=== PATIENT | male | born 1970 | race Caucasian/White ===

== ENCOUNTER 2016-08-20 11:04 | Emergency (ER) | payer OTHER, BC ==
--- NOTE | 2016-08-20 11:46 | CR ---
Clinical history: 46-year-old male "crush" injury right hand (between semitruck and conveyer). Interpretation: Negative. 3 views right hand unremarkable i.e. minimal soft tissue swelling and no sign of underlying fracture or dislocation right hand/wrist. No foreign bodies.
--- NOTE | 2016-08-20 11:54 | EDM.PDOC ---
ED HPI GENERAL MEDICAL PROBLEM - General Chief Complaint: Upper Extremity Injury/Pain Stated Complaint: [id number] CRUSHED HAND AT WORK 08/20 Time Seen by Provider: 08/20/16 11:50 Source of Information: Reports: Patient, RN, RN Notes Reviewed History Limitations: Reports: No Limitations - History of Present Illness INITIAL COMMENTS - FREE TEXT/NARRATIVE: C/O Rt hand injury at work [employer] when hand was smashed between a semi a conveyor. Denies any other injury. Tetanus vaccine is current. Onset: Today Onset Date: 08/20/16 Duration: Constant Location: Reports: Upper Extremity, Right Quality: Reports: Ache, Throbbing Severity: Severe Improves with: Reports: None Worsens with: Reports: None Associated Symptoms: Reports: No Other Symptoms Right Hand Pain Score (Numeric/FACES): 3 - Related Data Allergies Allergy/AdvReac Type Severity Reaction Status Date / Time cayenne pepper fruits Allergy Swelling Verified 08/20/16 11:15 Penicillins Allergy Nausea and Verified 08/20/16 11:15 Vomiting Home Meds: Home Meds Lisinopril [Prinivil] 10 mg PO DAILY 04/25/16 [History] Triamcinolone Acetonide [Triamcinolone Acetonide 0.1% Crm] 1 dose TOP BID PRN [History] Past Medical History HEENT History: Reports: None Cardiovascular History: Reports: Hypertension Respiratory History: Reports: None Gastrointestinal History: Reports: None Genitourinary History: Reports: None Musculoskeletal History: Reports: Other (See Below) Neurological History: Reports: None Psychiatric History: Reports: None Endocrine/Metabolic History: Reports: None Hematologic History: Reports: None Immunologic History: Reports: None Oncologic (Cancer) History: Reports: None Dermatologic History: Reports: None - Infectious Disease History Infectious Disease History: Reports: Chicken Pox - Past Surgical History Head Surgeries/Procedures: Reports: None GI Surgical History: Reports: Hernia, Inguinal Musculoskeletal Surgical History: Reports: Hip Replacement Social & Family History - Family History Family Medical History: Noncontributory - Tobacco Use Smoking Status *Q: Never Smoker Second Hand Smoke Exposure: Yes - Caffeine Use Caffeine Use: Reports: Coffee, Soda - Alcohol Use Days Per Week of Alcohol Use: 1 Number of Drinks Per Day: 1 Total Drinks Per Week: 1 - Recreational Drug Use Recreational Drug Use: No - Living Situation & Occupation Living situation: Reports: , with Family Review of Systems - Review of Systems Review Of Systems: ROS reveals no pertinent complaints other than HPI. ED EXAM, GENERAL - Physical Exam Exam: See Below Exam Limited By: No Limitations General Appearance: Alert, WD/WN, No Apparent Distress Head: Atraumatic, Normocephalic Respiratory/Chest: No Respiratory Distress Cardiovascular: Normal Peripheral Pulses Back Exam: Normal Inspection Extremities: Normal Capillary Refill, Other (moderate swelling to dorsum of right hand overlying the 2nd and 3rd MCPJ with a small superficial abrasion) Neurological: Alert, Oriented, Normal Cognition, Normal Gait, No Motor/Sensory Deficits Psychiatric: Normal Affect, Normal Mood Skin Exam: Warm, Dry, Intact, Normal Color, No Rash Course - Radiology Interpretation Free Text/Narrative:: Xray Rt hand: no fractures, see Rad. report. Departure - Departure Time of Disposition: 11:57 Disposition: Home, Self-Care 01 Condition: good Clinical Impression: Work related injury Crush injury of hand Qualifiers: Encounter type: initial encounter Laterality: right Qualified Code(s): S67.21XA - Crushing injury of right hand, initial encounter Contusion of right hand Qualifiers: Encounter type: initial encounter Qualified Code(s): S60.221A - Contusion of right hand, initial encounter - Discharge Information Instructions: Hand Contusion, [id number] Forms: ED Department Discharge Additional Instructions: Ice pack and elevate right hand as needed to reduce pain and swelling. Activity as tolerated. Follow up in clinic if any further problems.
[2016-08-20 12:06] VITALS: BP 130/94
== END 2016-08-20 12:10 | disposition home or self-care (01) ==
LOC: DL.ED 11:04
DX: S67.21XA Crushing injury of right hand, initial encounter (principal); S60.221A Contusion of right hand, initial encounter; Y99.0 Civilian activity done for income or pay; W23.0XXA Caught, crushed, jammed, or pinched between moving objects, initial encounter
CPT/HCPCS: 73130-RT; 99283

== ENCOUNTER 2017-07-23 15:34 | Emergency (ER) | payer OTHER, BC ==
[2017-07-23 15:42] VITALS: BP 174/107
[2017-07-23] MEDS ORDERED: Lidocaine 1% 30 ML SDV INJECT ONE (16:18)
[2017-07-23] MEDS ORDERED: Bacitracin Oint 1 GM U/D Packet TOP ONE (16:19)
--- NOTE | 2017-07-23 17:05 | EDM.PDOC ---
Scribed by Gladys Briones 07/23/17 [id number] for Kayden Yadav MD ED HPI GENERAL MEDICAL PROBLEM - General Chief Complaint: Laceration Stated Complaint: [id number] laceration lt index finger WC Time Seen by Provider: 07/23/17 15:45 Source of Information: Reports: Patient, RN, RN Notes Reviewed History Limitations: Reports: No Limitations - History of Present Illness INITIAL COMMENTS - FREE TEXT/NARRATIVE: Patient presents to ER with complaint of cut to left index finger on a metal lathe at work. The lathe was accidentally turned on by someone and it turned, crushing the pt's left hand and index finger. Denies any other injury. Last tetanus vaccine was less than 3 yrs ago per pt. Onset: Today Location: Reports: Upper Extremity, Left Quality: Reports: Ache Severity: Moderate Improves with: Reports: None Worsens with: Reports: None Associated Symptoms: Reports: No Other Symptoms Left Hand Pain Score (Numeric/FACES): 2 - Related Data Allergies Allergy/AdvReac Type Severity Reaction Status Date / Time cayenne pepper fruits Allergy Swelling Verified 07/23/17 15:44 Penicillins Allergy Nausea and Verified 07/23/17 15:44 Vomiting Home Meds: Home Meds Lisinopril [Prinivil] 10 mg PO DAILY 04/25/16 [History] Triamcinolone Acetonide [Triamcinolone Acetonide 0.1% Crm] 1 dose TOP BID PRN [History] Aspirin 325 mg PO ASDIRECTED PRN 07/23/17 [History] Past Medical History HEENT History: Reports: None Cardiovascular History: Reports: Hypertension Respiratory History: Reports: None Gastrointestinal History: Reports: None Genitourinary History: Reports: None Musculoskeletal History: Reports: Other (See Below) Neurological History: Reports: None Psychiatric History: Reports: None Endocrine/Metabolic History: Reports: None Hematologic History: Reports: None Immunologic History: Reports: None Oncologic (Cancer) History: Reports: None Dermatologic History: Reports: None - Infectious Disease History Infectious Disease History: Reports: Chicken Pox - Past Surgical History Head Surgeries/Procedures: Reports: None GI Surgical History: Reports: Hernia, Inguinal Musculoskeletal Surgical History: Reports: Hip Replacement Social & Family History - Family History Family Medical History: Noncontributory - Caffeine Use Caffeine Use: Reports: Coffee, Soda - Living Situation & Occupation Living situation: Reports: , with Family ED ROS GENERAL - Review of Systems Review Of Systems: ROS reveals no pertinent complaints other than HPI. ED EXAM, SKIN/RASH Exam: See Below Exam Limited By: No Limitations General Appearance: Alert, WD/WN, No Apparent Distress Head: Atraumatic, Normocephalic Respiratory/Chest: No Respiratory Distress Peripheral Pulses: 3+: Radial (L), Radial (R) Extremities: Normal Capillary Refill, Other (2cm linear laceration to left dorsal index finger to depth of subcut. tissue, mild active bleeding, fine flecks of metallic FB remove w/irrig. and forceps) Neurological: Alert, No Motor/Sensory Deficits Psychiatric: Normal Mood Skin: Warm, Dry Location, Skin: Upper Extremity, Left ED SKIN PROCEDURES - Laceration/Wound Repair Left Dorsal Finger Lac/Wound length In cm: 2 (Left index finger) Appearance: Subcutaneous, Linear, Mildly Contaminated Distal NVT: Neuro & Vascular Intact, No Tendon Injury Anesthetic Type: Local Local Anesthesia - Lidocaine (Xylocaine): 1% Plain Local Anesthetic Volume: 4cc Skin Prep: Chlorhexidine (Hibiciens), Saline Saline Irrigation (cc's): 1,000 Exploration/Debridement/Repair: Wound Explored, In a Bloodless Field, Explored to Base, Minimal Debridement, Minimally Undermined, Foreign Material Removed Closed with: Sutures Suture Size: 4-0 # of Sutures: 7 Suture Type: Nylon, Running Drain Placement: No Sterile Dressing Applied: Nurse Tetanus Status Addressed: Yes Complications: No - Splinting Left 2nd Digit Splint Site: Left index finger. Pre-Procedure NV Status: Normal Post-Procedure NV Status: Normal Splint Material: Aluminum-Foam Splint Design: Volar Applied & Form Fitted By: Nurse Provider Post-Splint Application NV Check: NV Status Normal, Good Position Complications: No Course - Vital Signs Last Recorded V/S: Last Vital Signs Temp 37.3 C 07/23/17 15:41 Pulse 70 07/23/17 15:41 Resp 17 07/23/17 15:41 BP 174/107 H 07/23/17 15:41 Pulse Ox 100 07/23/17 15:41 - Orders/Labs/Meds Orders: Active Orders 24 hr Category Date Time Status Hand Comp Min 3V Lt [CR] Urgent Exams 05/11/18 16:43 Taken Meds: Medications Discontinued Medications Generic Name Dose Route Start Last Admin Trade Name Sarah PRN Reason Stop Dose Admin Bacitracin 1 dose 07/23/17 16:19 07/23/17 16:57 Bacitracin Oint 1 Gm TOP 07/23/17 16:20 1 dose ONETIME ONE Administration Lidocaine HCl 30 ml 07/23/17 16:18 07/23/17 16:57 Xylocaine-Mpf 1% INJECT 07/23/17 16:19 30 ml ONETIME ONE Administration - Radiology Interpretation Free Text/Narrative:: Left hand x-ray: No fracture. See rad report. Departure - Departure Time of Disposition: 16:59 Disposition: Home, Self-Care 01 Condition: Good Clinical Impression: Laceration of left index finger Qualifiers: Encounter type: initial encounter Damage to nail status: without damage Foreign body presence: with foreign body Qualified Code(s): S61.221A - Laceration with foreign body of left index finger without damage to nail, initial encounter Crushing injury of left hand Qualifiers: Encounter type: initial encounter Qualified Code(s): S67.22XA - Crushing injury of left hand, initial encounter - Discharge Information Instructions: Crush Injury of the Hand, [id number], Laceration Care, Adult, [id number] Referrals: Nano Lux, MANAGER PRIMARY [Primary Care Provider] - Forms: ED Department Discharge Additional Instructions: Follow up in clinic for suture removal in 7 to 10 days. Return to ER if any signs of infection develop. Wear finger splint as needed to avoid bending the finger and tearing out the sutures. - My Orders Last 24 Hours: My Active Orders 07/23/17 16:43 Hand Comp Min 3V Lt [CR] Urgent - Assessment/Plan Last 24 Hours: My Active Orders 07/23/17 16:43 Hand Comp Min 3V Lt [CR] Urgent I have read and agree with the documentation that has been completed regarding this visit. By signing this record, I attest that the documentation was completed in my physical presence and is an accurate record of the encounter.
== END 2017-07-23 17:08 | disposition home or self-care (01) ==
LOC: DL.ED 15:34
DX: S67.22XA Crushing injury of left hand, initial encounter (principal); S61.211A Laceration without foreign body of left index finger without damage to nail, initial encounter; I10 Essential (primary) hypertension; Z88.0 Allergy status to penicillin; Z79.899 Other long term (current) drug therapy; W23.1XXA Caught, crushed, jammed, or pinched between stationary objects, initial encounter; Y99.0 Civilian activity done for income or pay
CPT/HCPCS: 12001; 12011; 73130-LT; 99283